=== PATIENT | male | born 1970 | race Caucasian/White ===

== ENCOUNTER 2017-09-12 07:07 | Day surgery (SDC) | payer OTHER ==
[~2017-09-12 07:07] MED LIST: CEFAZOLIN 1 GM/50 ML (PMX) 50 ML IVPB; SOD CHLORIDE 0.9% 1,000 ML IV
[2017-09-12] MEDS ORDERED: DEXAMETHASONE 4 MG/ML 1 ML INJ (08:59)
[2017-09-12] MEDS ORDERED: GLYCOPYRROLATE 0.4 MG INJ (08:59)
[2017-09-12] MEDS ORDERED: ONDANSETRON 4 MG INJ (08:59)
[2017-09-12] MEDS ORDERED: PROPOFOL 20 ML (08:59)
[2017-09-12] MEDS ORDERED: ROCURONIUM 50 MG INJ (08:59)
[2017-09-12] MEDS ORDERED: MIDAZOLAM 1 MG/ML 2 ML INJ (08:59)
[2017-09-12] MEDS ORDERED: FENTAnyl 50 MCG/ML VIAL (08:59)
[2017-09-12] MEDS ORDERED: CEFAZOLIN 1 GM INJ (08:59)
[2017-09-12] MEDS ORDERED: NEOSTIGMINE 3 MG/3 ML SYRINGE (08:59)
[2017-09-12] MEDS: LIDOCAINE 1%/EPI 30 ML INJ (09:17)
== END 2017-09-12 11:20 | disposition home or self-care (01) ==
LOC: SDS 07:07
DX: L57.0 Actinic keratosis (principal)
CPT/HCPCS: 11441; 88307